=== PATIENT | female | born 1940 | race Caucasian/White ===

== ENCOUNTER 2022-06-07 17:06 | Inpatient (IN) | payer MEDICARE ==
[~2022-06-07] VITALS: Ht 157.5 cm; Wt 62.1 kg
--- NOTE | 2022-06-07 18:10 | NUR ---
COVID SWAB COLLECTED AND SENT TO LAB
--- NOTE | 2022-06-07 18:10 | NUR ---
PHLEB AT BEDSIDE FOR BLOOD DRAW. PT REFUSES FOR IV LINE TO BE INSERTED; INFORMED ABOUT IMPORTANCE OF IV LINE ESTABLISHMENT BUT PT STILL REFUSED. FAMILY AT BEDSIDE.
[2022-06-07 18:31] LABS: BASOPHILS # (AUTO) 0.1 K/uL (0.0-0.2); BASOPHILS % (AUTO) 0.8 % (0.0-2.0); EOSINOPHILS % (AUTO) 1.1 % (0.0-6.0); HEMATOCRIT 36 % (33-45); HEMOGLOBIN 12.1 g/dL (11.5-14.8); LYMPHOCYTES % (AUTO) 18.2 % (20.0-44.0); MEAN CORPUSCULAR HGB CONC 33 g/dl (31.0-36.0); MEAN CORPUSCULAR VOLUME 94 fL (82-100); MONOCYTES # (AUTO) 0.7 K/uL (0.1-1.30); MONOCYTES % (AUTO) 6.7 % (2.0-12.0); NEUTROPHILS % (AUTO) 73.2 % (43.0-81.0); PLATELET COUNT (AUTO) 337 K/uL (150-450); RED BLOOD CELL COUNT(AUTO) 3.83 MIL/uL (4.0-5.2); WHITE BLOOD COUNT (AUTO) 10.9 K/uL (4.3-11.0)
[2022-06-07 18:49] LABS: ALANINE AMINOTRANSFERASE 27 U/L (12-78); ALBUMIN 3.7 g/dL (3.4-5.0); ALCOHOL, BLOOD < 3 mg/dL (0-0); ALKALINE PHOSPHATASE 141 U/L (46-116); ASPARTATE AMINOTRANSFERASE 24 U/L (15-37); BILIRUBIN,DIRECT 0.2 mg/dL (0.0-0.2); BILIRUBIN,TOTAL 0.6 mg/dL (0.2-1.0); CALCIUM, SERUM 11.3 mg/dL (8.5-10.1); CARBON DIOXIDE 25 mmol/L (21-32); CHLORIDE 107 mmol/L (98-107); CREATININE 1.6 mg/dL (0.6-1.3); GLUCOSE 114 mg/dL (74-106); POTASSIUM 3.8 mmol/L (3.5-5.1); SODIUM SERUM 142 mmol/L (136-145); TOTAL PROTEIN, SERUM 7.2 g/dL (6.4-8.2); UREA NITROGEN, BLOOD 20 mg/dL (7-18)
[2022-06-07 18:54] LABS: ACETAMINOPHEN 0 ug/ml (10-30)
--- NOTE | 2022-06-07 18:55 | NUR ---
TECH AT BEDSIDE FOR EKG
--- NOTE | 2022-06-07 19:05 | NUR ---
@1708 PT bib family for agitation x today, pos uti. sent by pmd for further eval. PT A/OX3. TOLERATING R/A WELL WITH NO SOB. CONNECTED PT TO POX AND MONITOR. SAFETY MEASURES IN PLACE.
--- NOTE | 2022-06-07 20:38 | NUR ---
URINE COLLECTED VIA BED DRAKE AND SENT TO LAB
[2022-06-07 21:28] LABS: COLOR,URINE YELLOW (YELLOW)
[2022-06-07 21:31] LABS: UGLUCOSE NEGATIVE (NEGATIVE)
[2022-06-07 21:32] LABS: BILIRUBIN,URINE NEGATIVE (NEGATIVE)
[2022-06-07 21:33] LABS: LEUKOCYTE ESTERASE ,URINE LARGE (NEGATIVE); NITRITE, URINE NEGATIVE (NEGATIVE); PROTEIN,URINE 3+ mg/dl (NEGATIVE); UROBILINOGEN,URINE 0.2 EU/dL (0.2)
--- NOTE | 2022-06-07 21:48 | NUR ---
CRISIS TEAM - MARVIN AT BED SIDE
[2022-06-07] MEDS ORDERED: CEFTRIAXONE 1 G VIAL IM ONE (22:00)
[2022-06-07] MEDS ORDERED: LIDOCAINE /MPF 1% VIAL 5 ML VIAL ONE (22:01)
[2022-06-07] MEDS ORDERED: CEFTRIAXONE 1 G VIAL ONE (22:01)
[2022-06-07 22:02] LABS: BACTERIA,URINE 3+ /HPF (None Seen); RBC,URINE 51-80 /HPF (0-2); SQUAMOUS EPITHELIAL CELL,UR 0-2 /HPF (None Seen); TRIPLE PHOSPHATE CRYSTAL,UR Many /HPF (None Seen); WBC,URINE 81-100 /HPF (0-3)
[2022-06-07 22:03] LABS: MUCUS,URINE Moderate /LPF (None Seen); URINE AMORPHOUS PHOSPHATES Many /HPF (None Seen)
[2022-06-07] MEDS ORDERED: OLANZAPINE 10 MG VIAL IM ONE (22:30)
[2022-06-08] MEDS ORDERED: HALOPERIDOL LACTATE INJ 5 MG/ML VIAL ONE (00:47)
[2022-06-08] MEDS ORDERED: OLANZAPINE 10 MG VIAL IM ONE (00:49)
--- NOTE | 2022-06-08 00:52 | NUR ---
PT NOTED WITH AGRESSION DURING ADLS. HITTING, SCRATCHING, AND YELLING AT STAFF. ADMINISTERED ZYPREXA 5MG IM ORDERED. WILL REASSESS BEHAVIOR
--- NOTE | 2022-06-08 03:15 | NUR ---
PT SLEEPING AND CALM AT THIS TIME. RESP EVEN AND NON LABORED. VSS. SAFETY MEASURES CONTINUED.
--- NOTE | 2022-06-08 03:52 | NUR ---
report given to Novem at [facility]
[2022-06-08] MEDS ORDERED: QUET25TA PO (06:19)
--- NOTE | 2022-06-08 06:56 | NUR ---
PT TRANSFERRED TO [facility] VIA HOSPITAL PROTOCOL. VSS. ALL BELONGINGS WITH PT
--- NOTE | 2022-06-08 07:06 | NUR ---
PATIENT'S BLOD GLUCOSE LEVEL IS 90 MG/DL UPON ADMISSION.
[2022-06-08 07:07] VITALS: BP 150/75
--- NOTE | 2022-06-08 07:58 | NUR ---
RN-NOTES RECEIVED PATIENT SLEEPING WITH BREATHING EVEN AND NONLABORED EASILY AROUSED,NO ACUTE DISTRESS NOTED.
[2022-06-08 08:00] VITALS: BP 134/84
[2022-06-08] MEDS ORDERED: LORAZEPAM 0.5 MG TABLET PO PRN (08:00)
[2022-06-08] MEDS ORDERED: BLOOD SUGAR DIAGNOSTIC 1 EACH STRIP IN ONE (08:00)
[2022-06-08] MEDS ORDERED: ZOLPIDEM TARTRATE 5 MG TABLET PO PRN (08:00)
[2022-06-08] MEDS ORDERED: MAG HYDROX/AL HYDROX/SIMETH 30 ML UDC PO PRN (08:00)
[2022-06-08] MEDS ORDERED: MAGNESIUM HYDROXIDE 30 ML UDC PO PRN (08:00)
[2022-06-08] MEDS ORDERED: ACETAMINOPHEN 325 MG TABLET PO PRN (08:00)
--- NOTE | 2022-06-08 10:55 | NUR ---
ELIECER Initial Discharge Note: Pt currently resides at home located at [address] [place] [address]; ([phone]). Per records, pt Chuck ([phone]) is involved. SW will contact pt's to gather collateral. ELIECER will work with the MD, treatment team, and pt to help coordinate appropriate discharge,
--- NOTE | 2022-06-08 10:55 | NUR ---
ELIECER Clinical Note: Pt placed on a 5150 hold for danger to others and GD. Pt was agitated and was aggressive with family at home. Pt currently resides at home located at [address] [place] [address]; ([phone]). Per records, pt Chuck ([phone]) is involved. SW will contact pt's to gather collateral.
--- NOTE | 2022-06-08 10:56 | NUR ---
Treatment Plan: Pt refused to sign treatment plan and was very confused.
--- NOTE | 2022-06-08 11:25 | NUR ---
ELIECER Family: ELIECER met with pt's Chuck ([phone]) on the unit. He stated that he wants pt out of the hospital. SW explained 5150 hold process and he was understanding of this but stated after the hold expires he would want pt back home. He did not understand the visiting hours and wanted to stay with the pt much longer. states that pt has the appropriate care at home and has caregivers.
[2022-06-08] MEDS ORDERED: APIX5TAB PO (11:45)
[2022-06-08] MEDS ORDERED: LMFO1TAB PO (11:46)
[2022-06-08] MEDS ORDERED: ERYT-113 PO (11:46)
[2022-06-08] MEDS ORDERED: METO50TA16 PO (11:46)
[2022-06-08] MEDS ORDERED: LAMO150T6 PO (11:46)
[2022-06-08] MEDS ORDERED: ROSU10TA29 PO (11:46)
[2022-06-08] MEDS ORDERED: POTA10TA PO (11:46)
[2022-06-08] MEDS ORDERED: MEMA5TAB42 PO (11:46)
[2022-06-08] MEDS ORDERED: AMLO-212 PO (11:46)
[2022-06-08] MEDS ORDERED: MONT10TA22 PO (11:46)
[2022-06-08] MEDS: ESCITALOPRAM OXALATE (10 MG) 10 MG TABLET PO SCH (12:55)
--- NOTE | 2022-06-08 15:00 | NUR ---
RN-NOTES RECEIVED PATIENT IN BED SLEEPING AROUND 0710 AM WITH BREATHING EVEN AND NONLABORED EASILY AROUSED, A/O X1, NO ACUTE DISTRESS NOTED. PER NIGHT NURSE PATIENT ARRIVED IN THE UNIT AROUND 0655 AM FROM [facility]. NEEDS ASSIST AND DIRECTIONS WITH ADL'S .SKIN ASSESSMENT DONE. PATIENT UNABLE TO SIGN ADMISSION PAPERS.PATIENT 'S FAIZA MADE AWARE OF THE ADMISSION. DR. CORBIN SEEN THE PATIENT WITH ORDERS. DR. ZIEGLER MADE AWARE OF THE ADMISSION.
[2022-06-08 16:00] VITALS: BP 142/91
[2022-06-08] MEDS: MEMANTINE HCL 5 MG TABLET PO SCH (17:28)
[2022-06-08] MEDS: APIXABAN 5 MG TABLET PO SCH (17:29)
[2022-06-08] MEDS: METOPROLOL TARTRATE 50 MG TABLET PO SCH (17:29)
--- NOTE | 2022-06-08 17:57 | NUR ---
RN-NOTES RECEIVED T.O ORDER FROM DR. CORBIN FOR NEUROLOGY CONSULT. NOTED AND CARRIED OUT. DR. AVILA MADE AWARE AND STATED THAT HE WILL SEE THE PATIENT TOMORROW.
--- NOTE | 2022-06-08 18:32 | NUR ---
RN-NOTES PATIENT IN BED AWAKE,A/O X1 ,CONFUSED NEEDS DIRECTIONS AND INSTRUCTIONS. NEEDS MAXIMUM ASSIST WITH ADL'S. NON AMBULATORY. COMPLIANT WITH MEDICATIONS. ALL NEEDS ATTENDED AND ANTICIPATED. UNABLE TO COLLECT URINE SPECIMEN AT THIS TIME. PATIENT'S AT BEDSIDE AT THIS TIME. WILL ENDORSE TO INCOMING NURSE FOR COLLECTIONS AND CONTINUITY OF CARE.
--- NOTE | 2022-06-08 19:45 | NUR ---
ADMINISTRATIVE DIRECTOR [facility] NOTE PATIENT IN BED AWAKE,A/O X1 ,CONFUSED NEEDS DIRECTIONS AND INSTRUCTIONS. NEEDS MAXIMUM ASSIST WITH ADL'S. NON AMBULATORY. @ BS DURING SHIFT CHANGE. RCVD REPORT FROM ENDORSING NURSE THAT ORDERED COLLECTION OF URINE SAMPLE FOR RANDOM URINE SODIUM, INFORMED PT AND OF THIS ORDER AND PER PLS NOT TO DO CATHETER AND JUST OFFER PT BED DRAKE, PT OFFERED FLUIDS AND OFFERED BED DRAKE, EDUCATED PT WITH THE USE OF CALL LIGHT SOON SHE IS ABLE TO PROVIDE URINE SO STAFF CAN ASSIST AND PROVIDE HER WITH PERICARE WELL, PT VERBALIZED UNDERSTANDING AT THIS TIME , NURSE WILL CONT TO MONITOR AND ANTICIPATE NEEDS.
[2022-06-08 20:00] VITALS: BP 133/69
[2022-06-08] MEDS ORDERED: ERYTHROMYCIN ETHYLSUCCINATE 200 MG/5 ML SUSPENSION PO SCH (22:00)
[2022-06-08] MEDS: QUETIAPINE FUMARATE 25 MG TABLET PO SCH (22:21)
--- NOTE | 2022-06-08 22:53 | NUR ---
FLOOR SPACE ALLOCATOR [facility] NOTE PT STILL UNABLE TO PROVIDE URINE, OFFERED WATER/ FLUIDS AGAIN WHICH PT DRUNK, DUE MEDICATION SEROQUEL ORDERED GIVEN. PT HAS BEEN TRYING AND ATTEMPTING TO GET OUT OF BED, FALL RISK PRECAUTIONS OBSERVED PER PT SHE IS NOT ABLE TO STAND UP ON HER OWN, 2 CNAS ASSISTED PT AND TRANSFERRED PT IN THE VENESSA-CHAIR FOR SAFETY MEASURES AND CLOSE MONITORING BY STAFF. WILL TRY AGAIN LATER TO OBTAIN URINE SAMPLE FROM PT, CHARGE NURSE MARION COWART.
--- NOTE | 2022-06-08 23:00 | NUR ---
MOTOR BLOCK MECHANIC [facility] NOTE RX FOR 0 :EES 125 MG (3.12 ML)SUSP- NOT GIVEN- DUE TO DRUG NOT AVAILABLE, FLIGHT OPERATIONS DISPATCH CLERK MARION MADE AWARE, ALSO CONTACTED HOUSE NURSING SUP LIZZETTE, BUT DRUG CURRENTLY NOT AVAILABLE AT THIS TIME. TO FOLLOW UP WITH PHARMACY IN THE MORNING.
--- NOTE | 2022-06-09 00:30 | NUR ---
PRESIDENT CELEBRITY ACQUISTION [facility] NOTE PT REMAINS WIDE AWAKE AT THIS TIME, OFFERED PRN SLEEPING MEDICINE AMBIEN- PT REFUSED AT THIS TIME. WILL CONT TO MONITOR AND ATTEND NEEDS.
--- NOTE | 2022-06-09 01:32 | NUR ---
DIRECTOR ADULT [facility] NOTE STILL AWAKE, PRN AMBIEN 5 MG GIVEN TO PT. WILL CONT TO MONITOR PT'S SAFETY AND COMFORT. KEPT CLEAN AND DRY, REPOSITIONED.
--- NOTE | 2022-06-09 02:32 | NUR ---
BUS PERSON DISHWASHER [facility] NOTE 1 HR POST RESTORIL : PT REMAINS AWAKE, CONT WITH NURSING INTERVENTIONS- KEEPING PT CLEAN AND DRY , PROVIDED DIMMED -QUIET ENVIRONMENT, CONT TO MONITOR AND ANTICIPATE NEEDS.
--- NOTE | 2022-06-09 06:24 | NUR ---
ADULT MANAGER [facility] NOTE PT AWAKE IN HER BED , AM CARE PROVIDED BY 2 WEB PORTAL DEVELOPER STAFFS, OFFERED BED DRAKE AGAIN TO PT - WILL TRY TO COLLECT URINE. WILL CONT TO MONITOR. PT WAS MED COMPLIANT DURING SHIFT, CONFUSED , DISORGANIZED , ALL NEEDS ATTENDED AND SAFETY MEASURES OBSERVED ALL NIGHT.
--- NOTE | 2022-06-09 06:33 | NUR ---
TICKER MAINTAINER CLOSING NOTE PT REFUSED BED DRAKE AT THIS TIME-NURSE ATTEMPTED DURING SHIFT MULTIPLE TIMES TO COLLECT URINE SAMPLE BUT WAS UNSUCCESSFUL, MARION CHARGE NURSE MADE AWARE, WILL ENDORSE TO ONCOMING NURSE TO DO THE COLLECTION . PT CURRENTLY RESTING IN BED, CLEAN AND DRY. ALL NEEDS ATTENDED, SAFETY MEASURES OBSERVED. BED ALARM ON. WILL ENDORSE CONT OF CARE AND COLLECTION OF URINE TO AM ONCOMING NURSE.
[2022-06-09 08:00] VITALS: BP 166/96
--- NOTE | 2022-06-09 08:43 | NUR ---
ELIECER EARLY DISCHARGE ENTRY 06/10/2022: Patient will return back [place] [address] [place] [address]; ([phone]). Patients Chuck ([phone]) will last picker pt at 10AM. Patient is alert and oriented x1. Patient has caregivers at home. Patient denies visual/auditory hallucinations. Patient denies suicidal or homicidal ideation. Patient will follow up with (Research Food Technologist) Dr. Pierre located at [address] [address]; ([phone]). Patient will follow up with (Psychiatrist) Dr. Garcia located at [address] [place] [address]; ([phone]). Patient presents with euthymic mood and congruent affect. Addendum: 06/12/22 at 1023 by ELIECER NEWMAN Discharge was canceled and pt was transferred to medical floor.
--- NOTE | 2022-06-09 09:46 | NUR ---
RN-NOTES PATIENT REFUSED ALL 0900AM MEDICATIONS DESPITE EXPLANATIONS AND ENCOURAGEMENT. PATIENT GETS ANGRY AT THE TITLE I DIRECTOR STATED" I DON'T TAKE ANY MEDICATIONS AND JUST LEAVE ME ALONE LADY". OFFERED X3.
[2022-06-09] MEDS: VITAMIN B COMP W-C 1 TAB TABLET PO SCH (10:16)
[2022-06-09] MEDS: MONTELUKAST SODIUM (10MG) 10 MG TABLET PO SCH (10:16)
[2022-06-09] MEDS: ATORVASTATIN 10 MG TABLET PO SCH (10:17)
[2022-06-09] MEDS: LamoTRIgine 100 MG TABLET PO SCH (10:17)
[2022-06-09] MEDS: ESCITALOPRAM OXALATE (10 MG) 10 MG TABLET PO SCH (10:18)
[2022-06-09] MEDS: APIXABAN 5 MG TABLET PO SCH ×2 (10:18→16:39)
[2022-06-09] MEDS: METOPROLOL TARTRATE 50 MG TABLET PO SCH ×2 (10:18→16:38)
[2022-06-09] MEDS: MEMANTINE HCL 5 MG TABLET PO SCH ×2 (10:19→16:38)
[2022-06-09] MEDS: AMLODIPINE BESYLATE 5 MG TABLET PO SCH (10:19)
--- NOTE | 2022-06-09 10:19 | NUR ---
RN-NOTES PATIENT AGREED TO TAKE ALL 0900AM MEDICATIONS.
--- NOTE | 2022-06-09 10:30 | NUR ---
RN-NOTES PATIENT REFUSED PT THERAPY THIS SHIFT DESPITE ENCOURAGEMENT.
[2022-06-09] MEDS ORDERED: IV NS 0.9% 1,000 ML IV SCH (12:00)
--- NOTE | 2022-06-09 12:03 | NUR ---
RN-NOTES SEEN BY DR. BILL TODAY WITH T.O ORDER OF IV NS 1000ML BOLUS X1. NOTED AND CARRIED OUT.
--- NOTE | 2022-06-09 15:04 | NUR ---
RN-NOTES PATIENT REFUSED LAB DRAW DESPITE ENCOURAGEMENT AND EXPLANATIONS RISK AND BENEFITS. ATTEMPTED X3.
[2022-06-09 16:00] VITALS: BP 144/75
--- NOTE | 2022-06-09 18:15 | NUR ---
Chuck spoke to Dr. Gonsales in the phone about discharging the pt. AMA.
--- NOTE | 2022-06-09 18:30 | NUR ---
RN-NOTES NO URINE COLLECTED DUE TO PATIENT IS UNCOOPERATIVE AND ARGUMENTATIVE.DR. BILL MADE AWARE.
--- NOTE | 2022-06-09 18:56 | NUR ---
RN-NOTES PATIENT LYING IN BED AWAKE,A/O X2,FORGETFUL,GUARDED,NO ACUTE DISTRESS NOTED.COMPLIANT WITH MEDICATIONS.ONGOING IV FLUID OF NS X1 OF 1000ML/BOLUS INFUSING WELL WELL TOLERATED. IV LINE ON LEFT HAND GAUZE #22 NO COMPLICATION NOTED ON THE SITE.NEEDS MODERATE ASSIST WITH ADL'S,GOOD DEBORAH CARE RENDERED.ALL NEEDS ATTENDED AND ANTICIPATED. WILL CONT. MONITORING FOR SAFETY AND BEHAVIOR.WILL ENDORSE TO INCOMING NURSE FOR CONTINUITY OF CARE. PATIENT'S AT BEDSIDE AT THIS TIME.
--- NOTE | 2022-06-09 19:50 | NUR ---
RN-NOTES: PATIENT RESTING IN BED AWAKE ALERT,A/O X2, EASILY AGITATED ,PARANOID , CONFUSED FORGETFUL,GUARDED,NO ACUTE DISTRESS NOTED. PER DAY SHIFT REPORT MD ORDERED PT.ONGOING IV FLUID OF NS X1 OF 1000ML/BOLUS INFUSING TOLERATED WELL . IV LINE ON LEFT HAND GAUZE #22 NO COMPLICATION NOTED.ALL NEEDS ATTENDED AND ANTICIPATED. WILL CONTINUE TO MONITORING FOR SAFETY AND BEHAVIOR.
[2022-06-09 20:55] VITALS: BP 145/69
[2022-06-09] MEDS: QUETIAPINE FUMARATE 25 MG TABLET PO SCH (21:12)
--- NOTE | 2022-06-09 21:14 | NUR ---
RN NOTE: ERYTHROCIN STEARATE 125 MG PO- NOT GIVEN ( RX FOR 2199) , DUE TO DRUG NOT AVAILABLE, CHARGE NURSE MARION AND HOUSE NURSING SUPERVISIOR LEIGH MADE AWARE, PER NURSING SUPERVISIOR DRUG CURRENTLY NOT AVAILABLE AT THIS TIME.
[2022-06-09] MEDS ORDERED: ERYTHROMYCIN STEARATE 250 MG TABLET PO SCH (22:00)
--- NOTE | 2022-06-10 00:02 | NUR ---
RN NOTES: PATIENT BEHAVIOR IS VERY AGGRESSIVE, CONFUSED, DELUSIONAL, PARANOID UNCOOPERTIVE , UNPREDICTABLE, STRIKING OUT AT STAFF, TRYING TO KICK STAFF, VERBALLY ABUSIVE TO STAFF, BANGING ON THE SIDE RAILS, AND ATTEMPTING TO GETTING OUT THE BED. PATIENT IS SCRATCHING HER SELF AND CAUSING MULTIPLE SKIN TERAS. PATIENT IS NON REDIRCTABLE AND IS REFUSING SKIN ASSESSMENT AND PICTURES AT THIS TIME. PATIENT ASSISTED TO VENESSA CHAIR WITH HELP OF STAFF MEMEBR. WILL CONTINUE TO MONITOR THIS PATIENT WITH THE HELP OF STAFF.
--- NOTE | 2022-06-10 00:29 | NUR ---
RN NOTES : ANXIETY PATIENT BEHAVIOR IS VERY AGGRESSIVE, CONFUSED, DELUSIONAL, PARANOID UNCOOPERTIVE , UNPREDICTABLE, STRIKING OUT AT STAFF, TRYING TO KICK STAFF, VERBALLY ABUSIVE TO STAFF, BANGING ON THE SIDE RAILS, AND ATTEMPTING TO GET OUT THE BED, PRN ATIVAN 0.5 MG PO GIVEN FOR PT. BEHAVIOR Addendum: 06/10/22 at 0031 by MEGGAN KEATING RN CORRECTION ABOVE NOTE: PRN ATIVAN 1 MG PO GIVEN FOR PT. BEHAVIOR.
--- NOTE | 2022-06-10 01:27 | NUR ---
RN NOTES: PT. ALLOWED SKIN ASSESSMENT PICTURES TAKEN AND PLACED IN THE CHART, NOTIFIED NURSING SUPERVISIOR OF PATIENT'S AGGRESIVE UNCOOPERTIVE UNPREDICTABLE BEHAVIORS.
--- NOTE | 2022-06-10 06:38 | NUR ---
RN NOTES: PT. REFUSED AM LABS , ENCOURAGED X3, RISKS BENEFITS EXPLINED ,BUT PT.STRONGLY REFUSED.
[2022-06-10 08:00] VITALS: BP 110/66
--- NOTE | 2022-06-10 09:08 | NUR ---
Dr. Gonsales gave an order to D/C hold and D/C AMA. Spoke to Chuck at [phone] and he will take her home at 11:00 am. Pt. to follow up with psych and medical doctors.
[2022-06-10] MEDS: LamoTRIgine 100 MG TABLET PO SCH (09:40)
[2022-06-10] MEDS: MEMANTINE HCL 5 MG TABLET PO SCH (09:40)
[2022-06-10] MEDS: ESCITALOPRAM OXALATE (10 MG) 10 MG TABLET PO SCH (09:40)
[2022-06-10] MEDS: ATORVASTATIN 10 MG TABLET PO SCH (09:40)
[2022-06-10] MEDS: MONTELUKAST SODIUM (10MG) 10 MG TABLET PO SCH (09:40)
[2022-06-10] MEDS: VITAMIN B COMP W-C 1 TAB TABLET PO SCH (09:40)
[2022-06-10] MEDS: APIXABAN 5 MG TABLET PO SCH (09:41)
[2022-06-10] MEDS: AMLODIPINE BESYLATE 5 MG TABLET PO SCH (09:44)
[2022-06-10 09:47] VITALS: BP 110/66
[2022-06-10] MEDS: METOPROLOL TARTRATE 50 MG TABLET PO SCH (09:47)
--- NOTE | 2022-06-10 14:29 | NUR ---
RN-NOTES RECEIVED T.O ORDER FROM DR. ZIEGLER ( ORACLE BUSINESS ANALYST ) TO TRANSFER PATIENT TO [facility]. PATIENT'S SON LISETH IN THE UNIT TALKING TO DR. BILL ( CREW LEAD) PER DR. BILL THAT HE SPOKE TO PATIENT'S AND AGREED OF THE TRANSFER. DR. CORBIN MADE AWARE WITH T.O ORDER TO DISCONTINUE HOLD AND D/C ALL PSYCH MEDS. NOTED. SANITATION LEAD MADE AWARE AND GAVE THE ROOM 307-1 FOR THE PATIENT.
[2022-06-10 15:06] LABS: CALCIUM, SERUM 10.8 mg/dL (8.5-10.1); CARBON DIOXIDE 24 mmol/L (21-32); CHLORIDE 109 mmol/L (98-107); CREATININE 1.4 mg/dL (0.6-1.3); GLUCOSE 90 mg/dL (74-106); POTASSIUM 3.5 mmol/L (3.5-5.1); SODIUM SERUM 144 mmol/L (136-145); UREA NITROGEN, BLOOD 16 mg/dL (7-18)
--- NOTE | 2022-06-10 15:25 | NUR ---
RN-DISCHARGE NOTES PATIENT WAS TRANSFER TO [facility] ROOM 307-1,AWAKE, A/O X 1-2, REPORT WAS GIVEN TO FROYLAN ( RN), ALL BELONGINGS WAS GIVEN BACK TO THE PATIENT. PATIENT DID NOT VERBAL SI/HI,DENIES VISUAL/AUDITORY HALLUCINATIONS AT THE TIME OF DISCHARGE. PATIENT STRONGLY REFUSED SKIN ASSESSMENT AND PICTURE TAKEN PRIOR TO DISCHARGE. PATIENT'S KONSTANTIN MADE AWARE OF THE TRANSFER.
--- NOTE | 2022-06-12 10:25 | NUR ---
SW Transfer Note: Pt was transferred to the medical floor on 06/10/2022, due to Hypercalcemia. Dr. Gonsales discontinued the hold. Patient lives at home [address] [place] [address]; ([phone]). Patients Chuck ([phone]) is involved in patient's care. Patient will follow up with (Resistance Brazer) Dr. Pierre located at [address] [address]; ([phone]). Patient will follow up with (Psychiatrist) Dr. Garcia located at [address] [place] [address]; ([phone]).
== END 2022-06-10 14:43 | disposition short-term general hospital (02) | DRG 885 ==
LOC: ER 17:25 → GPS 06-08 03:33
PROVIDERS: ADMIT Psychiatry & Neurology Psychiatry; ATTEND Student in an Organized Health Care Education/Training Program
DX: F29 Unspecified psychosis not due to a substance or known physiological condition (principal); N17.0 Acute kidney failure with tubular necrosis; N18.9 Chronic kidney disease, unspecified; N39.0 Urinary tract infection, site not specified; F03.90 Unspecified dementia, unspecified severity, without behavioral disturbance, psychotic disturbance, mood disturbance, and anxiety; F32.A Depression, unspecified; E78.5 Hyperlipidemia, unspecified; E83.52 Hypercalcemia; E86.0 Dehydration; I12.9 Hypertensive chronic kidney disease with stage 1 through stage 4 chronic kidney disease, or unspecified chronic kidney disease; Z79.01 Long term (current) use of anticoagulants; Z79.899 Other long term (current) drug therapy; Z87.820 Personal history of traumatic brain injury
CPT/HCPCS: 36415; 70450-TC; 71045-TC; 76770-TC; 80048-TC; 80076-TC; 81001; 82962-TC; 83970; 85025-TC; 87081-TC; 87086-TC; 87186-TC; 97112-TC; 97116-TC; 97530-TC; C9803; G0480; J0696; J1630; J3490; J7030

== ENCOUNTER 2022-06-10 14:55 | Inpatient (IN) | payer MEDICARE ==
[~2022-06-10] VITALS: Ht 162.6 cm; Wt 62.6 kg
[~2022-06-10 14:55] MED LIST: AMLO-212 PO; APIX5TAB PO; ERYT-113 PO; LAMO150T6 PO; LMFO1TAB PO; MEMA5TAB42 PO; METO50TA16 PO; MONT10TA22 PO; POTA10TA PO; ROSU10TA29 PO
--- NOTE | 2022-06-10 16:00 | NUR ---
RN NOTE PATIENT WAS ADMITTED TO UNIT FROM [facility], PATIENT CAME TO UNIT VIA WHEELCHAIR WITH NO SIGN OF DISTRESS. V/S TAKEN STABLE AND RECORDED. PATIENT WAS ORIENTED TO ROOM SETUP AND EDUCATED ON THE USE OF CALL LIGHT. PATIENT AWAKE IN BED RESTING. A/O X1-2, NO PAIN NOTED AT THIS TIME. ON ROOM AIR, NO DISTRESS OR SHORTNESS OF BREATH NOTED. IV ACCESS RFA #24G, INTACT, PATENT AND FLUSHING WELL. FALL AND SAFETY MEASURES IN PLACE, BED ALARM ON, BED IN LOW AND LOCK POSITION, CALL LIGHT AND TABLE WITHIN EASY REACH, SIDE RAILS UP X2. WILL CONTINUE TO MONITOR.
[2022-06-10] MEDS ORDERED: ACETAMINOPHEN 325 MG TABLET PO PRN (16:30)
[2022-06-10] MEDS ORDERED: ONDANSETRON HCL/PF 4 MG/2 ML VIAL IVP PRN (16:30)
[2022-06-10] MEDS: METOPROLOL TARTRATE 50 MG TABLET PO SCH (18:05)
[2022-06-10] MEDS: MEMANTINE HCL 5 MG TABLET PO SCH (18:05)
[2022-06-10] MEDS: APIXABAN 5 MG TABLET PO SCH (18:06)
[2022-06-10] MEDS: IV NS 0.9% 1,000 ML IV SCH (18:21)
--- NOTE | 2022-06-10 19:19 | NUR ---
RN OPENING NOTE PATIENT IN BED, AWAKE. PATIENT IS A/O X 1 AT THIS TIME. PATIENT NEEDS FREQUENT REORIENTATION, PATIENT IS ALSO FORGETFUL. PATIENT HAS A RFA 24 G PATENT AND INTACT, INFUSING NS AT 100 ML/HR. PATIENT DOES NOT REPORT ANY PAIN AT THIS TIME. PATIENT NOT IN ANY APPARENT DISTRESS. SAFETY MEASURES IN PLACE: BED LOCKED AND IN LOWEST POSITION, CALL LIGHT WITHIN REACH, SIDE RAILS UP. WILL MONITOR PATIENT CLOSELY.
--- NOTE | 2022-06-10 19:41 | NUR ---
RN NOTE PATIENT AWAKE IN BED RESTING. A/O X1-2, NO PAIN NOTED AT THIS TIME. ON ROOM AIR, NO DISTRESS OR SHORTNESS OF BREATH NOTED. IV ACCESS RFA #24G, INTACT, PATENT AND FLUSHING WELL. SCHEDULE MEDICATIONS ADMINISTERED. FALL AND SAFETY MEASURES IN PLACE, BED ALARM ON, BED IN LOW AND LOCK POSITION, CALL LIGHT AND TABLE WITHIN EASY REACH, SIDE RAILS UP X2. WILL ENDORSE TO OFFSET LITHOGRAPHIC PRESS OPERATOR.
[2022-06-10 20:00] VITALS: BP 144/87
[2022-06-10 20:09] VITALS: BP 124/76
[2022-06-10] MEDS: CEPHALEXIN MONOHYDRATE 500 MG CAPSULE PO SCH (21:57)
[2022-06-10] MEDS: ATORVASTATIN 10 MG TABLET PO SCH (21:57)
[2022-06-11] MEDS: IV NS 0.9% 1,000 ML IV SCH ×3 (01:23→21:16)
[2022-06-11 06:03] LABS: BASOPHILS # (AUTO) 0.1 K/uL (0.0-0.2); BASOPHILS % (AUTO) 1.2 % (0.0-2.0); EOSINOPHILS % (AUTO) 2.8 % (0.0-6.0); HEMATOCRIT 30 % (33-45); HEMOGLOBIN 10.1 g/dL (11.5-14.8); LYMPHOCYTES # (AUTO) 1.8 K/uL (0.8-4.8); LYMPHOCYTES % (AUTO) 32.1 % (20.0-44.0); MEAN CORPUSCULAR HGB CONC 34 g/dl (31.0-36.0); MEAN CORPUSCULAR VOLUME 95 fL (82-100); MONOCYTES # (AUTO) 0.4 K/uL (0.1-1.30); MONOCYTES % (AUTO) 7.3 % (2.0-12.0); NEUTROPHILS # (AUTO) 3.2 K/uL (1.8-8.9); NEUTROPHILS % (AUTO) 56.6 % (43.0-81.0); PLATELET COUNT (AUTO) 270 K/uL (150-450); RED BLOOD CELL COUNT(AUTO) 3.17 MIL/uL (4.0-5.2); WHITE BLOOD COUNT (AUTO) 5.7 K/uL (4.3-11.0)
[2022-06-11 06:47] LABS: CREATININE 1.3 mg/dL (0.6-1.3); PHOSPHORUS 2.6 mg/dL (2.5-4.9); POTASSIUM 3.6 mmol/L (3.5-5.1)
--- NOTE | 2022-06-11 06:51 | NUR ---
RN CLOSING NOTE PATIENT IN BED, AWAKE. PATIENT IS A/O X 1 AT THIS TIME. PATIENT NEEDS FREQUENT REORIENTATION, PATIENT IS ALSO FORGETFUL. PATIENT HAS A RFA 24 G PATENT AND INTACT, INFUSING NS AT 100 ML/HR. PATIENT DOES NOT REPORT ANY PAIN AT THIS TIME. PATIENT NOT IN ANY APPARENT DISTRESS. SAFETY MEASURES IN PLACE: BED LOCKED AND IN LOWEST POSITION, CALL LIGHT WITHIN REACH, SIDE RAILS UP. ALL NEEDS MET AND ATTENDED. ALL ORDERS CARRIED OUT. WILL ENDORSE TO DAY SHIFT NURSE FOR AR.
[2022-06-11 06:52] LABS: THYROID STIMULATING HORMONE 1.211 uIU/mL (0.358-3.74)
--- NOTE | 2022-06-11 07:10 | NUR ---
MS RN OPENING NOTES: RECEIEVED PT IN BED AWAKE. ALERT AND ORIENTED X 1, WITH EPISODES OF CONFUSION AND FORGETFULNESS. NO SOB OR CARDIAC DISTRESS NOTED. NEEDS FREQUENT REORIENTATION. IV ACCESS ON RFA GAUGE 24 PATENT AND INTACT AND INFUSING IVF NS 1L@100 ML/HR. MAINTAINED SAFETY PRECAUTIONS: BED LOCKED AND IN LOWEST POSITION. CALL LIGHT IN EASY REACH FOR HELP. WILL MONITOR PT ACCORDINGLY. KEPT RESTED AND COMFORTABLE.
[2022-06-11] MEDS: PANTOPRAZOLE 40 MG TABLET.DR PO SCH (07:43)
[2022-06-11 08:00] VITALS: BP 175/93
--- NOTE | 2022-06-11 08:12 | NUR ---
RN NOTES: RECEIVED ORDER FROM DR BILL, TO REFER PT TO GI. ORDERS NOTED AND CARRIED OUT.
[2022-06-11] MEDS: LamoTRIgine 100 MG TABLET PO SCH (08:55)
[2022-06-11] MEDS: POTASSIUM CHLORIDE 10 MEQ TABLET.SA PO SCH (08:56)
[2022-06-11] MEDS: AMLODIPINE BESYLATE 5 MG TABLET PO SCH (08:56)
[2022-06-11] MEDS: MEMANTINE HCL 5 MG TABLET PO SCH ×2 (08:56→16:31)
[2022-06-11] MEDS: METOPROLOL TARTRATE 50 MG TABLET PO SCH ×2 (08:56→16:33)
[2022-06-11] MEDS: CEPHALEXIN MONOHYDRATE 500 MG CAPSULE PO SCH ×3 (08:56→21:16)
[2022-06-11] MEDS: MONTELUKAST SODIUM (10MG) 10 MG TABLET PO SCH (08:56)
[2022-06-11] MEDS: APIXABAN 5 MG TABLET PO SCH ×2 (08:57→16:35)
[2022-06-11 11:03] VITALS: BP 175/93
[2022-06-11] MEDS ORDERED: CEPHALEXIN MONOHYDRATE 250 MG CAPSULE PO SCH (12:00)
[2022-06-11 16:00] VITALS: BP 153/79
--- NOTE | 2022-06-11 16:31 | NUR ---
RN NOTES: WOUND CARE TREATMENT DONE, PT TOLERATED WELL.
--- NOTE | 2022-06-11 18:43 | NUR ---
MS RN CLOSING NOTES: PT IN BED AWAKE. ALERT AND ORIENTED X 1, WITH EPISODES OF CONFUSION AND FORGETFULNESS. NO SOB OR CARDIAC DISTRESS NOTED. NEEDS FREQUENT REORIENTATION. IV ACCESS ON RFA GAUGE 24 PATENT AND INTACT AND INFUSING IVF NS 1L@100 ML/HR. MAINTAINED SAFETY PRECAUTIONS: BED LOCKED AND IN LOWEST POSITION. CALL LIGHT IN EASY REACH FOR HELP. WILL MONITOR PT ACCORDINGLY. KEPT RESTED AND COMFORTABLE. ENDORSED TO NOC SHIFT FOR AR.
--- NOTE | 2022-06-11 19:30 | NUR ---
RN OPENING NOTE PATIENT IN BED, AWAKE. SITTING UP ON THE BED. PATIENT IS A/O X 1 AT THIS TIME. PATIENT NEEDS FREQUENT REORIENTATION PATIENT IS CONFUSED AND DISORIENTED. PATIENT IS FORGETFUL WELL. PATIENT HAS A RFA 24 G NOTED TO HAVE EDEMA ON THE SITE, IV IS INFILTRATED. WILL INSERT NEW IV ACCESS. PATIENT DOES NOT REPORT ANY PAIN AT THIS TIME. PATIENT NOT IN ANY APPARENT DISTRESS. PATIENT FIXATED ON HAVING HER REACHED AT THIS TIME, THE LINE IS RINGING BUT NO ANSWER, WITH MULTIPLE ATTEMPTS. SAFETY MEASURES IN PLACE: BED LOCKED AND IN LOWEST POSITION, CALL LIGHT WITHIN REACH, SIDE RAILS UP. WILL MONITOR PATIENT CLOSELY.
[2022-06-11 20:00] VITALS: BP 149/81
--- NOTE | 2022-06-11 20:19 | NUR ---
RN NOTE PATIENT REFUSING TO HAVE AN IV ACCESS INSERTED AT THIS TIME. INFORMED PATIENT REGARDING RISK AND BENEFITS. PATIENT STILL REFUSING EVEN WITH ENCOURAGEMENT.
[2022-06-11] MEDS: ATORVASTATIN 10 MG TABLET PO SCH ×2 (21:16→21:37)
--- NOTE | 2022-06-11 21:38 | NUR ---
RN NOTE PATIENT REFUSED TO TAKE MEDICATION AT THIS TIME AND STATES "IT IS ALL TAKEN CARED OF" AND THAT SHE WILL TAKE MEDICATIONS TOMORROW. INFORMED PATIENT THAT IT IS SCHEDULED TO BE TAKEN AT THIS TIME. SHE STATES THAT THEY GAVE THE MEDICATIONS EARLIER ALREADY AND SHE "DOESN'T WANT TO MESS UP THE SCHEDULE" WHICH THEN I EXPLAINED TO THE PATIENT THE FREQUENCY AND TIMING OF THE MEDICATIONS. REFUSED KEFLEX AND LIPITOR.
--- NOTE | 2022-06-12 06:48 | NUR ---
RN CLOSING NOTE PATIENT IN BED, AWAKE. PATIENT IS A/O X 1 AT THIS TIME. PATIENT NEEDS FREQUENT REORIENTATION, PATIENT IS ALSO FORGETFUL. PATIENT IS ON RA, TOLERATING WELL, NO SOB NOTED. PATIENT DOES NOT REPORT ANY PAIN AT THIS TIME. PATIENT STILL REFUSES TO HAVE IV INSERTED. CHARGE NURSE DENYS AWARE. WOUND CARE RENDERED ON CHITRA UPPER EXTREMITIES. PATIENT NOT IN ANY APPARENT DISTRESS. SAFETY MEASURES IN PLACE: BED LOCKED AND IN LOWEST POSITION, CALL LIGHT WITHIN REACH, SIDE RAILS UP. ALL NEEDS MET AND ATTENDED. ALL ORDERS CARRIED OUT. WILL ENDORSE TO DAY SHIFT NURSE FOR AR.
[2022-06-12 08:00] VITALS: BP 153/71
[2022-06-12] MEDS: CEPHALEXIN MONOHYDRATE 500 MG CAPSULE PO SCH ×2 (08:02→20:36)
[2022-06-12] MEDS: LamoTRIgine 100 MG TABLET PO SCH (08:02)
[2022-06-12] MEDS: POTASSIUM CHLORIDE 10 MEQ TABLET.SA PO SCH (08:03)
[2022-06-12] MEDS: MEMANTINE HCL 5 MG TABLET PO SCH ×2 (08:03→16:51)
[2022-06-12] MEDS: MONTELUKAST SODIUM (10MG) 10 MG TABLET PO SCH (08:03)
[2022-06-12] MEDS: IV NS 0.9% 1,000 ML IV SCH ×2 (08:04→18:56)
[2022-06-12] MEDS: AMLODIPINE BESYLATE 5 MG TABLET PO SCH (08:04)
[2022-06-12] MEDS: APIXABAN 5 MG TABLET PO SCH ×2 (08:05→16:57)
--- NOTE | 2022-06-12 08:20 | NUR ---
RN AM NOTE RECEIVED PATIENT AWAKE IN BED, A/O X 2, REORIENTED PT OFTEN ,PT IS FORGETFUL & NEEDS REASSURANCE, NO SOB NOTED on RA AT THIS TIME MAINTAINING 96% OR HIGHER, NO C/O PAIN. PATIENT WOUND CARE ADMIN ON BI-LATERAL UPPER EXTREMITIES. PATIENT HAS NO DISTRESS. SAFETY MEASURES INTACT - BED LOW TO FLOOR , BED LOCKED, CALL LIGHT WITHIN REACH, SIDE RAILS UP. ALL NEEDS MET AND ATTENDED TO IN A TIMELY MANNER . ALL ORDERS CARRIED OUT.
[2022-06-12] MEDS: PANTOPRAZOLE 40 MG TABLET.DR PO SCH (08:39)
[2022-06-12] MEDS: METOPROLOL TARTRATE 50 MG TABLET PO SCH ×2 (09:26→16:52)
--- NOTE | 2022-06-12 10:05 | NUR ---
WOUND CARE CONSULT: PT PRESENTS WITH SKIN TEARS AND DISCOLORATION TO BILATERAL ARMS, PRESENT ON ADMISSION. RECOMMENDATIONS MADE FOR SKIN PROTECTION. DISCUSSED WITH NURSING STAFF. IN AGREEMENT WITH PLAN OF CARE. Addendum: 06/12/22 at 1008 by MICHAEL SILVA WNDNU ADDITIONAL: PT DENIES NEED FOR SKIN ASSESSMENT OF BACK AND BUTTOCKS. PT EATING BREAKFAST AT THIS TIME.
--- NOTE | 2022-06-12 10:23 | NUR ---
SW Transfer Note: Pt was transferred to the medical floor on 06/10/2022, due to Hypercalcemia. Dr. Gonsales discontinued the hold. Patient lives at home [address] [place] [id number]; ([phone]). Patients Chuck ([phone]) is involved in patient's care. Patient will follow up with (Tub Mender) Dr. Pierre located at [address] [address]; ([phone]). Patient will follow up with (Psychiatrist) Dr. Garcia located at [address] [place] [address]; ([phone]).
[2022-06-12 16:00] VITALS: BP 107/60
--- NOTE | 2022-06-12 18:50 | NUR ---
EDUCATED PT IMPORTANCE OF TRYING TO KEEP ARM STRAIGHT TO ALLOW THE FLOW FROM THE IV OF THE NS TO INFUSE, PT IS SQUIRMING, CRYING AND NEEDS TO BE REDIRECTED OFTEN, IV PATENT AND FLUSHING IN THE LEFT AC 20 GAUGE, PT MADE COMFORTABLE AND ALL NEEDS AND MD MED ORDERS CARRIED OUT PER ORDER, SAFETY MEASURES IN PLACE, BED LOW TO FLOOR, WHEELS LOCKED AND PT AWARE OF HOW TO USE CALL LIGHT IF SHE NEEDS HELP WITH SOMETHING.
--- NOTE | 2022-06-12 19:56 | NUR ---
MS RN OPENING NOTE PATIENT AWAKE IN BED, ALERT/ORIENTED X 1, PT CONFUSED, NEEDS FREQUENT REORIENTATION. PATIENT STABLE ON RA, NO S/S OF DISTRESS OR SOB NOTED, BREATHING EVEN AND UNLABORED. IV ACCESS ON LEFT AC #20G INTACT AND INFUSING NS @ 100 ML/HR. SAFETY MEASURES IN PLACE: CALL LIGHT WITHIN REACH, SIDE RAILS UP X 2, BED LOCKED IN LOWEST POSITION, BED ALARM ON. WILL CONTINUE TO MONITOR PATIENT
[2022-06-12 20:00] VITALS: BP 126/71
[2022-06-12] MEDS: ATORVASTATIN 10 MG TABLET PO SCH (21:06)
[2022-06-13] MEDS: IV NS 0.9% 1,000 ML IV SCH ×2 (04:49→14:27)
--- NOTE | 2022-06-13 06:21 | NUR ---
MS RN CLOSING NOTE PATIENT SLEEPING IN BED, ALERT/ORIENTED X 1, PT CONFUSED, NEEDS FREQUENT REORIENTATION. PATIENT STABLE ON RA, NO S/S OF DISTRESS OR SOB NOTED, BREATHING EVEN AND UNLABORED. IV ACCESS ON LEFT AC #20G INTACT AND INFUSING NS @ 100 ML/HR. NO SIGNIFICANT CHANGES THIS SHIFT, PT SLEPT WELL THROUGH THE NIGHT. MEDICATIONS GIVEN ORDERED, PT NEEDS MET. SAFETY MEASURES IN PLACE: CALL LIGHT WITHIN REACH, SIDE RAILS UP X 2, BED LOCKED IN LOWEST POSITION, BED ALARM ON. WILL ENDORSE TO DAYSHIFT NURSE FOR CONTINUITY OF CARE
[2022-06-13 08:00] VITALS: BP 145/68
--- NOTE | 2022-06-13 08:03 | NUR ---
MS RN OPENING NOTES: PATIENT AWAKE IN BED, ALERT/ORIENTED X 1, PT CONFUSED, NEEDS FREQUENT REORIENTATION. PATIENT STABLE ON RA, NO S/S OF DISTRESS OR SOB NOTED, BREATHING EVEN AND UNLABORED. IV ACCESS ON LEFT AC #20G INTACT AND INFUSING NS @ 100 ML/HR. SAFETY MEASURES IN PLACE: CALL LIGHT WITHIN REACH, SIDE RAILS UP X 2, BED LOCKED IN LOWEST POSITION, BED ALARM ON. WILL CONTINUE WITH PLAN OF CARE AT THIS TIME.
[2022-06-13] MEDS: MEMANTINE HCL 5 MG TABLET PO SCH ×2 (08:47→16:44)
[2022-06-13] MEDS: MONTELUKAST SODIUM (10MG) 10 MG TABLET PO SCH (08:47)
[2022-06-13] MEDS: LamoTRIgine 100 MG TABLET PO SCH (08:47)
[2022-06-13] MEDS: POTASSIUM CHLORIDE 10 MEQ TABLET.SA PO SCH (08:47)
[2022-06-13] MEDS: CEPHALEXIN MONOHYDRATE 500 MG CAPSULE PO SCH ×2 (08:47→21:15)
[2022-06-13] MEDS: METOPROLOL TARTRATE 50 MG TABLET PO SCH ×2 (08:48→16:44)
[2022-06-13] MEDS: PANTOPRAZOLE 40 MG TABLET.DR PO SCH (08:48)
[2022-06-13] MEDS: AMLODIPINE BESYLATE 5 MG TABLET PO SCH (08:48)
[2022-06-13] MEDS: APIXABAN 5 MG TABLET PO SCH ×2 (08:50→16:46)
--- NOTE | 2022-06-13 14:37 | NUR ---
PER CM, SPOUSE REFUSED TO DC TO SNF, APPEALED DC, APPEAL CASE # [id number]
[2022-06-13 16:00] VITALS: BP 154/90
--- NOTE | 2022-06-13 18:31 | NUR ---
MS RN CLOSING NOTES; PATIENT ASLEEP IN BED, ALERT/ORIENTED X 1. PT HAS EPISODES OF CONFUSION AND FORGETFULNESS. NEEDS FREQUENT REORIENTATION. PATIENT STABLE ON RA, NO S/S OF ACUTE DISTRESS OR SOB NOTED, BREATHING EVEN AND UNLABORED. DENIES PAIN AT THIS TIME. IV ACCESS ON LEFT FA #20G INTACT, SL, PT REQUESTED TO TAKE A BREAK FROM IV FLUIDS AT THIS TIME. DUE MEDS, GIVEN AND NEEDS MET AT THIS TIME. KEPT PT DRY, CLEAN AND COMFORTABLE. SAFETY MEASURES IN PLACE: CALL LIGHT WITHIN REACH, SIDE RAILS UP X 2, BED LOCKED IN LOWEST POSITION, BED ALARM ON.
--- NOTE | 2022-06-13 19:30 | NUR ---
MS RN OPENING NOTE RECEIVED PATIENT AWAKE IN BED. A/O X1 WITH EPISODES OF CONFUSION AND FORGETFULNESS. NEEDS FREQUENT REORIENTATION. PATIENT STABLE ON RA. NO SOB OR S/S OF RESPIRATORY DISTRESS NOTED. BREATHING EVEN AND UNLABORED. DENIES PAIN AT THIS TIME. IV ACCESS LFA #20G, INTACT AND PT REFUSING IVF AT THIS TIME. SAFETY PRECAUTIONS IN PLACE. BED IN LOWEST LOCKED POSITION, HOB ELEVATED, SIDE RAILS UP X3, BED ALARM ON, AND CALL LIGHT AND TABLE WITHIN REACH. ALL NEEDS MET AT THIS TIME.
[2022-06-13 20:00] VITALS: BP 143/78
[2022-06-13] MEDS: ATORVASTATIN 10 MG TABLET PO SCH (21:15)
--- NOTE | 2022-06-14 06:49 | NUR ---
MS RN CLOSING NOTE PATIENT AWAKE IN BED. A/O X1 WITH EPISODES OF CONFUSION AND FORGETFULNESS. NEEDS FREQUENT REORIENTATION. PATIENT STABLE ON RA. NO SOB OR S/S OF RESPIRATORY DISTRESS NOTED. BREATHING EVEN AND UNLABORED. DENIES PAIN AT THIS TIME. IV ACCESS LFA #20G, INTACT AND STILL REFUSING IVF AT THIS TIME. ALL DUE MEDS GIVEN ORDERED. TURNED AND REPOSITIONED Q2H. SAFETY PRECAUTIONS IN PLACE AT ALL TIMES. BED IN LOWEST LOCKED POSITION, HOB ELEVATED, SIDE RAILS UP X3, BED ALARM ON, AND CALL LIGHT AND TABLE WITHIN REACH. ALL NEEDS MET AT THIS TIME AND WILL ENDORSE TO ONCOMING NURSE FOR AR.
[2022-06-14] MEDS: PANTOPRAZOLE 40 MG TABLET.DR PO SCH (07:32)
--- NOTE | 2022-06-14 07:38 | NUR ---
MS RN OPENING NOTE RECEIVED PATIENT AWAKE IN BED. A/O X1 WITH EPISODES OF CONFUSION AND FORGETFULNESS. ASKS QUESTIONS OVER AND OVER AGAIN, NEEDING CONSTANT REORIENTATION ON ROOM AIR. NO SOB OR S/S OF RESPIRATORY DISTRESS NOTED. BREATHING EVEN AND UNLABORED. DENIES PAIN AT THIS TIME. IV ACCESS LFA #20G, INTACT AND PT REFUSING IVF AT THIS TIME. SAFETY PRECAUTIONS IN PLACE. BED IN LOWEST LOCKED POSITION, HOB ELEVATED, SIDE RAILS UP X3, BED ALARM ON, AND CALL LIGHT AND TABLE WITHIN REACH. WILL CONTINUE TO MONITOR DURING MY SHIFT
[2022-06-14 08:00] VITALS: BP 147/78
[2022-06-14] MEDS: APIXABAN 5 MG TABLET PO SCH ×2 (08:46→17:00)
[2022-06-14] MEDS: MONTELUKAST SODIUM (10MG) 10 MG TABLET PO SCH (08:49)
[2022-06-14] MEDS: CEPHALEXIN MONOHYDRATE 500 MG CAPSULE PO SCH ×2 (08:49→21:05)
[2022-06-14] MEDS: POTASSIUM CHLORIDE 10 MEQ TABLET.SA PO SCH (08:49)
[2022-06-14] MEDS: LamoTRIgine 100 MG TABLET PO SCH (08:50)
[2022-06-14] MEDS: AMLODIPINE BESYLATE 5 MG TABLET PO SCH (08:51)
[2022-06-14] MEDS: METOPROLOL TARTRATE 50 MG TABLET PO SCH ×2 (08:52→17:03)
[2022-06-14] MEDS: MEMANTINE HCL 5 MG TABLET PO SCH ×2 (08:52→17:02)
[2022-06-14] MEDS: IV NS 0.9% 1,000 ML IV SCH ×3 (10:00→19:35)
--- NOTE | 2022-06-14 14:44 | NUR ---
RN NOTES PATIENT WAS ABLE TO TOLERATE WALKING WITH PT ASSISTANCE OF ABOUT 30 FEET.
[2022-06-14 16:00] VITALS: BP 129/62
--- NOTE | 2022-06-14 18:22 | NUR ---
MS RN CLOSING NOTE PATIENT AWAKE IN BED. A/OX1 WITH EPISODES OF CONFUSION AND FORGETFULNESS. STILL WITH EPISODES OF CONFUSION. NO SOB OR S/S OF RESPIRATORY DISTRESS NOTED. COVID ANTIGEN TEST TAKEN. BREATHING EVEN AND UNLABORED. DENIES PAIN AT THIS TIME. STILL WITH IV ACCESS LFA #20G, INTACT, FLUSHES WELL. SAFETY PRECAUTIONS MAINTAINED: BED IN LOWEST LOCKED POSITION, SIDE RAILS UP X3, BED ALARM ON, AND CALL LIGHT AND TABLE WITHIN REACH. ALL DUE MEDS GIVEN. ALL NEEDS MET. WILL ENDORSE TO THE [facility] REPAIRER NURSE.
[2022-06-14 20:00] VITALS: BP 134/62
[2022-06-14] MEDS: ATORVASTATIN 10 MG TABLET PO SCH (21:05)
[2022-06-15] MEDS: IV NS 0.9% 1,000 ML IV SCH (05:27)
--- NOTE | 2022-06-15 06:45 | NUR ---
MS RN CLOSING NOTE PATIENT AWAKE IN BED. A/O X1 WITH EPISODES OF CONFUSION AND FORGETFULNESS. NEEDS FREQUENT REORIENTATION. PATIENT STABLE ON RA. NO SOB OR S/S OF RESPIRATORY DISTRESS NOTED. BREATHING EVEN AND UNLABORED. DENIES PAIN AT THIS TIME. IV ACCESS LFA #20G, INTACT AND PT REFUSING IVF ALL SHIFT. ALL DUE MEDS GIVEN ORDERED. KEPT CLEAN AND DRY. SAFETY PRECAUTIONS IN PLACE AT ALL TIMES. BED IN LOWEST LOCKED POSITION, HOB ELEVATED, SIDE RAILS UP X3, BED ALARM ON, AND CALL LIGHT AND TABLE WITHIN REACH. ALL NEEDS MET AT THIS TIME AND WILL ENDORSE TO ONCOMING NURSE FOR AR.
--- NOTE | 2022-06-15 07:00 | NUR ---
MS GARCIA OPENING NOTES: RECEIVED PT IN BED, AWAKE. ALERT HARMONY ORIENTED X 1 WITH EPISODES OF CONFUSION AND FORGETFUL, NEEDS FREQUENT REORIENTATION. NO SOB OR CARDIAC DISTRESS NOTED. Addendum: 06/15/22 at 0836 by NIKKO HOLLEY RN INCOMPLETE
--- NOTE | 2022-06-15 07:00 | NUR ---
MS RN OPENING NOTES: RECEIVED PT IN BED, AWAKE. ALERT HARMONY ORIENTED X 1 WITH EPISODES OF CONFUSION AND FORGETFUL, NEEDS FREQUENT REORIENTATION. NO SOB OR CARDIAC DISTRESS NOTED. REFUSED TO HAVE IV ACCESS. PT IS TRYING TO GET OUT OF BED. MAINTAINED SAFETY PRECAUTIONS: BED LOCKED AND IN LOWEST POSITION, SIDE RAILS UP X 2. CALL LIGHT IN EASY REACH FOR HELP. WILL MONITOR ACCORDINGLY.
[2022-06-15] MEDS: PANTOPRAZOLE 40 MG TABLET.DR PO SCH (07:30)
[2022-06-15 08:00] VITALS: BP 148/78
--- NOTE | 2022-06-15 08:00 | NUR ---
RN NOTES: PATIENT IS BEING AGGRESSIVE TO STAFFS. INFORMED DR CORBIN,ORDERED ZYPREXA 5MG IM ONE TIME ONLY. ORDER NOTED AND CARRIED OUT.
[2022-06-15] MEDS ORDERED: OLANZAPINE 10 MG VIAL IM ONE (08:05)
--- NOTE | 2022-06-15 09:00 | NUR ---
RN NOTES: UNABLE TO GIVE AM MEDS PATIENT IS COMBATIVE BUT ABLE TO CALM DOWN NOW. WILL MONITOR PT ACCORDINGLY.
[2022-06-15] MEDS: LamoTRIgine 100 MG TABLET PO SCH (09:31)
[2022-06-15] MEDS: CEPHALEXIN MONOHYDRATE 500 MG CAPSULE PO SCH (09:31)
[2022-06-15 09:32] VITALS: BP 148/78
[2022-06-15] MEDS: METOPROLOL TARTRATE 50 MG TABLET PO SCH (09:32)
[2022-06-15] MEDS: POTASSIUM CHLORIDE 10 MEQ TABLET.SA PO SCH (09:32)
[2022-06-15] MEDS: AMLODIPINE BESYLATE 5 MG TABLET PO SCH (09:32)
[2022-06-15] MEDS: MEMANTINE HCL 5 MG TABLET PO SCH (09:32)
[2022-06-15] MEDS: MONTELUKAST SODIUM (10MG) 10 MG TABLET PO SCH (09:32)
[2022-06-15] MEDS: APIXABAN 5 MG TABLET PO SCH (09:33)
[2022-06-15] MEDS ORDERED: OLANZAPINE ZYDIS 5 MG TAB.RAPDIS PO PRN (10:30)
[2022-06-15 11:43] LABS: COLOR,URINE YELLOW (YELLOW)
[2022-06-15 11:44] LABS: PROTEIN,URINE 1+ mg/dl (NEGATIVE); UGLUCOSE NEGATIVE (NEGATIVE)
[2022-06-15 11:45] LABS: BILIRUBIN,URINE NEGATIVE (NEGATIVE); LEUKOCYTE ESTERASE ,URINE LARGE (NEGATIVE); UROBILINOGEN,URINE 0.2 EU/dL (0.2)
[2022-06-15 11:46] LABS: NITRITE, URINE NEGATIVE (NEGATIVE)
[2022-06-15 11:48] LABS: BACTERIA,URINE Many /HPF (None Seen); RBC,URINE 21-50 /HPF (0-2); SQUAMOUS EPITHELIAL CELL,UR Many /HPF (None Seen); WBC,URINE TOO NUMEROUS TO COUN /HPF (0-3)
[2022-06-15] MEDS ORDERED: CEFTRIAXONE 2 G in IV D5W 100 ML IV SCH (13:00)
--- NOTE | 2022-06-15 16:10 | NUR ---
CONDUIT MECHANIC NOTES: PATIENT DC TO [facility], REPORT GIVEN TO RADHA GUNTER. NO SOB OR CARDIAC DISTRESS NOTED.A/O X 1. PATIENT IS PLEASANT UPON DC, DENIES ANY PAIN AT THIS TIME. IV ACCESS ON RFA GAUGE 24 PATENT AND INTACT SL. LEFT IN PLACE PT WILL CONTINUE IV ANTIBIOTICS FOR 6 MORE DAYS. IDENTIFICATION BAND KEPT IN PLACE. SKIN ISSUES NOTED, TOOK PHOTOS AND FILED TO PT'S CHART,DISCHARGE PACKET AND INSTRUCTIONS GIVEN TO FAIZA () AND VERBALIZED UNDERSTANDING. PATIENT LEFT THE UNIT STABLE. ALL BELONGINGS CARRIED WITH THE , RADHA NOONAN WHEELED PT IN THE LOBBY, ACCOMPANIED BY PT'S DAUGHTER AND .
[2022-06-15] MEDS ORDERED: ENSURE CLEAR 237 ML LIQUID (MIX BERRY) PO SCH (17:00)
== END 2022-06-15 16:28 | DRG 640 ==
LOC: MED 14:55
DX: E83.52 Hypercalcemia (principal); N17.0 Acute kidney failure with tubular necrosis; N39.0 Urinary tract infection, site not specified; F03.90 Unspecified dementia, unspecified severity, without behavioral disturbance, psychotic disturbance, mood disturbance, and anxiety; E78.5 Hyperlipidemia, unspecified; I10 Essential (primary) hypertension; V89.2XXD Person injured in unspecified motor-vehicle accident, traffic, subsequent encounter; D63.8 Anemia in other chronic diseases classified elsewhere
CPT/HCPCS: 36415; 80048-TC; 80061-TC; 81001; 82306; 83735-TC; 83970; 84100-TC; 84443-TC; 85025-TC; 87081-TC; 87086-TC; 97110-TC; 97116-TC; 97530-TC; A6403; G0378; J0696; J2405; J3490; J7030; J7060

== ENCOUNTER 2022-09-07 12:37 | Outpatient (CLI) | payer MEDICARE ==
[~2022-09-07 12:37] MED LIST changes: +LIDOCAINE SOLN 4% 50 ML BOTTLE ONE
[2022-09-07] MEDS ORDERED: LIDOCAINE 2%-EPI 1:100,000 30 ML VIAL ONE (13:00)
== END 2022-09-07 23:59 | disposition home health service (06) ==
LOC: WOU 12:37
PROVIDERS: ATTEND Surgery
DX: L89.154 Pressure ulcer of sacral region, stage 4 (principal); L02.31 Cutaneous abscess of buttock; L03.317 Cellulitis of buttock; R10.2 Pelvic and perineal pain; M62.50 Muscle wasting and atrophy, not elsewhere classified, unspecified site; M19.90 Unspecified osteoarthritis, unspecified site; G47.30 Sleep apnea, unspecified; Z79.01 Long term (current) use of anticoagulants
CPT/HCPCS: 11043; 10060; 87070; A6407; J3490

== ENCOUNTER 2022-09-14 12:51 | Outpatient (CLI) | payer MEDICARE ==
[~2022-09-14 12:51] MED LIST changes: -LIDOCAINE SOLN 4% 50 ML BOTTLE ONE
[2022-09-14] MEDS ORDERED: LIDOCAINE SOLN 4% 50 ML BOTTLE ONE (12:58)
== END 2022-09-14 23:59 | disposition home health service (06) ==
LOC: WOU 12:51
PROVIDERS: ATTEND Surgery
DX: L89.154 Pressure ulcer of sacral region, stage 4 (principal); T81.89XA Other complications of procedures, not elsewhere classified, initial encounter; M19.90 Unspecified osteoarthritis, unspecified site; I10 Essential (primary) hypertension; G47.30 Sleep apnea, unspecified
CPT/HCPCS: 11043; A6407 ×2

== ENCOUNTER 2022-09-21 12:44 | Outpatient (CLI) | payer MEDICARE | END 2022-09-21 23:59 | disposition home or self-care (01) | LOC: WOU 12:44 | PROVIDERS: ATTEND Surgery | DX: L89.154 Pressure ulcer of sacral region, stage 4 (principal); T81.89XA Other complications of procedures, not elsewhere classified, initial encounter; I10 Essential (primary) hypertension; M19.90 Unspecified osteoarthritis, unspecified site; M62.50 Muscle wasting and atrophy, not elsewhere classified, unspecified site; G47.30 Sleep apnea, unspecified; K58.9 Irritable bowel syndrome, unspecified; Z79.01 Long term (current) use of anticoagulants | CPT/HCPCS: 11043 ==

== ENCOUNTER 2022-10-05 12:40 | Outpatient (CLI) | payer MEDICARE | END 2022-10-05 23:59 | disposition home or self-care (01) | LOC: WOU 12:40 | PROVIDERS: ATTEND Surgery | DX: T81.89XD Other complications of procedures, not elsewhere classified, subsequent encounter (principal); M62.50 Muscle wasting and atrophy, not elsewhere classified, unspecified site; M19.90 Unspecified osteoarthritis, unspecified site; I10 Essential (primary) hypertension; G47.30 Sleep apnea, unspecified | CPT/HCPCS: G0463 ==